=== PATIENT | male | born 1990 | race Caucasian/White ===

== ENCOUNTER 2021-10-12 10:55 | Emergency (ER) | payer MEDICAID, OTHER ==
[~2021-10-12] VITALS: Ht 193 cm; Wt 77.3 kg
[~2021-10-12 10:55] MED LIST: VALA100031 PO
[2021-10-12 11:43] LABS: BASOPHILS % (AUTO) 0.4 % (0-1); EOSINOPHILS % (AUTO) 0.2 % (0-6); HEMATOCRIT 49.7 % (42.0-52.0); HEMOGLOBIN 17.5 g/dl (14.0-17.9); LYMPHOCYTES # (AUTO) 1.3 X10'3 (1.1-4.8); LYMPHOCYTES % (AUTO) 19.9 % (21-51); MEAN CORPUSCULAR HEMOGLOBIN 31.3 PG (27.0-31.0); MEAN CORPUSCULAR HGB CONC 35.1 g/dL (33.0-36.5); MEAN CORPUSCULAR VOLUME 89.2 FL (78-98); MEAN PLATELET VOLUME 8.3 FL (7.4-10.4); MONOCYTES # (AUTO) 0.4 X10'3 (0-0.9); MONOCYTES % (AUTO) 6.5 % (2-12); NEUTROPHILS # (AUTO) 4.7 X10'3 (1.8-7.7); PLATELET COUNT 196 X10'3 (140-440); RED BLOOD COUNT 5.58 X10'6 (4.70-6.10); RED CELL DISTRIBUTION WIDTH 12.8 % (11.5-14.5); WHITE BLOOD COUNT 6.5 X10'3 (4.5-11.0)
[2021-10-12 12:03] LABS: ALANINE AMINOTRANSFERASE 28 U/L (12-78); ALBUMIN 4.5 G/DL (3.4-5.0); ALBUMIN/GLOBULIN RATIO 1.3 (1.1-1.5); ALKALINE PHOSPHATASE 53 IU/L (46-116); ANION GAP 13 (8-16); ASPARTATE AMINO TRANSFERASE 20 U/L (10-37); BILIRUBIN,TOTAL 1.5 MG/DL (0.1-1.0); BLOOD UREA NITROGEN 7 MG/DL (7-18); BUN/CREATININE RATIO 6.4 (5.4-32.0); CALCIUM 9.5 MG/DL (8.5-10.1); CHLORIDE 99 MMOL/L (99-107); CREATININE 1.09 MG/DL (0.60-1.10); GLUCOSE 109 MG/DL (70-104); POTASSIUM 4.7 MMOL/L (3.5-5.1); SODIUM 133 MMOL/L (135-145); TOTAL CARBON DIOXIDE 21.3 MMOL/L (24-32); TOTAL PROTEIN 8.1 G/DL (6.4-8.2); eGFR 80 ML/MIN
[2021-10-12] MEDS ORDERED: normal saline 1000ML IV soln IVB ONE (14:40)
[2021-10-12] MEDS ORDERED: ondansetron 4mg rapidly disintigrating tab PO ONE (14:40)
[2021-10-12 16:28] VITALS: BP 107/81
[2021-10-12] MEDS ORDERED: ONDA8TAB13 PO ×2 (18:19)
[2021-10-15] MEDS ORDERED: PRED10TA (18:05)
[2021-10-18] MEDS ORDERED: NO HOME MEDS (00:30)
[2021-10-19] MEDS ORDERED: ACET-1008 PO (10:22)
== END 2021-10-12 18:26 | disposition home or self-care (01) ==
LOC: ER 10:55
DX: E05.90 Thyrotoxicosis, unspecified without thyrotoxic crisis or storm (principal); Z20.822 Contact with and (suspected) exposure to COVID-19; B34.9 Viral infection, unspecified; Z88.1 Allergy status to other antibiotic agents; Z88.8 Allergy status to other drugs, medicaments and biological substances; Z72.89 Other problems related to lifestyle
CPT/HCPCS: 36415; 71046; 80053; 84439; 84443; 85025; 87811; 93005; 96360; 96361; 99285; J7030

== ENCOUNTER 2023-09-13 17:32 | Emergency (ER) | payer MEDICAID ==
[~2023-09-13] VITALS: Ht 193 cm; Wt 83.4 kg
[2023-09-13 17:38] VITALS: BP 137/88; PULSE 74; RESP 16; O2SAT 98
[2023-09-13] MEDS: proparacaine 0.5% ophthalmic drops 15ml EACHEYE ONE (18:25)
[2023-09-13] MEDS ORDERED: POLOS LEFTEYE (18:45)
[2023-09-13 18:51] VITALS: TEMP 98.1
== END 2023-09-13 18:55 | disposition home or self-care (01) ==
LOC: ER 17:32
DX: T15.02XA Foreign body in cornea, left eye, initial encounter (principal); W44.8XXA Other foreign body entering into or through a natural orifice, initial encounter; Y93.89 Activity, other specified; Y92.89 Other specified places as the place of occurrence of the external cause; Y99.8 Other external cause status
CPT/HCPCS: 65220; 99284